=== PATIENT | male | born 1975 ===

== ENCOUNTER 2018-05-29 09:33 | Emergency (ER) | payer OTHER ==
[2018-05-29] MEDS ORDERED: Sodium Chloride 0.9% 1,000 ML IV ONE (10:36)
--- NOTE | 2018-05-29 10:52 | C.PDOC ---
History Of Present Illness 43-year-old male presents to the ED complaining of right-sided abdominal pain, worsening over the past 4 weeks. Patient was seen at an ED in [place] for the same complaint 3 weeks ago, and reports having an x-ray that was negative. No blood work or urine was done. Patient complains pain is now a constant stabbing, and is exacerbated after food. He has been taking 800mg ibuprofen every 4 hours with temporary relief of pain. Otherwise patient denies any fevers, chills, dysuria, hematuria, nausea, vomiting, diarrhea, or constipation. Patient states the pain is localized mostly to the RUQ, however occasionally he feels pain in the mid back shooting into the RUQ. Prior surgical history includes appendectomy. Time Seen by Provider: 05/29/18 10:30 Chief Complaint (Nursing): Male Genitourinary History Per: Patient History/Exam Limitations: no limitations Onset/Duration Of Symptoms: Days Current Symptoms Are (Timing): Worse Quality Of Discomfort: Sharp, Stabbing Alleviating Factors: OTC Meds (ibuprofen) Past Medical History Reviewed: Historical Data, Nursing Documentation, Vital Signs Vital Signs: Last Vital Signs Temp 98.3 F 05/29/18 10:05 Pulse 64 05/29/18 10:05 Resp 18 05/29/18 10:05 BP 158/95 H 05/29/18 10:05 Pulse Ox 98 05/29/18 10:05 - Medical History PMH: No Chronic Diseases Surgical History: Appendectomy Family History: States: No Known Family Hx - Social History Hx Alcohol Use: No Hx Substance Use: No - Immunization History Hx Tetanus Toxoid Vaccination: No Hx Influenza Vaccination: No Hx Pneumococcal Vaccination: No Review Of Systems Constitutional: Negative for: Fever, Chills Cardiovascular: Negative for: Chest Pain Respiratory: Negative for: Shortness of Breath Gastrointestinal: Positive for: Abdominal Pain (right upper quadrant). Negative for: Nausea, Vomiting, Diarrhea Genitourinary: Negative for: Dysuria, Hematuria Musculoskeletal: Negative for: Back Pain, Other (flank pain) Neurological: Negative for: Weakness, Numbness Physical Exam - Physical Exam Appears: Non-toxic, No Acute Distress Skin: Warm, Dry Head: Atraumatic, Normacephalic Eye(s): bilateral: Normal Inspection, EOMI Oral Mucosa: Moist Neck: Normal ROM Chest: Symmetrical Cardiovascular: Rhythm Regular, No Murmur Respiratory: Normal Breath Sounds, No Rales, No Rhonchi, No Wheezing Gastrointestinal/Abdominal: Bowel Sounds, Soft, Tenderness (to the right upper quadrant, negative Fletcher's sign), No Distention, No Guarding, No Rebound, No Hernia, No Ascites Back: No CVA Tenderness, No Vertebral Tenderness Extremity: Bilateral: Atraumatic, Normal Color And Temperature, Normal ROM Neurological/Psych: Oriented x3, Normal Speech Gait: Steady ED Course And Treatment - Laboratory Results Result Diagrams: 05/29/18 11:14 05/29/18 11:14 O2 Sat by Pulse Oximetry: 98 (RA) Pulse Ox Interpretation: Normal - CT Scan/US Abdominal US Other Rad Studies (CT/US): Read By Radiologist, Radiology Report Reviewed CT/US Interpretation: Accession No. : [id number]. Patient Name / ID : SARI VERDUGO / [id number]. Exam Date : 05/29/2018 11:59:40 ( Approved ). Study Comment : Sex / Age : M / [id number]. Creator : Tasneem Waddell. Dictator : Belkys Jacobs MD. Security Incident Response Specialist : Inspection Machine Tender : Belkys Jacobs MD. Approver2 : Report Date : 05/29/2018 12:15:02. My Comment : . HISTORY: RUQ abd pain. COMPARISON: None available. TECHNIQUE: Sonographic evaluation of the abdomen. FINDINGS: LIVER: Measures 18.9 cm in sagittal dimension. Echogenic liver may be seen in setting of hepatic parenchymal disease or fatty infiltration. No focal hepatic mass identified. The main portal vein appears patent with normal directional flow. No intrahepatic bile duct dilatation. GALLBLADDER: No gallstones. No gallbladder wall thickening. Negative sonographic Fletcher's sign as assessed by the stock layer. COMMON BILE DUCT: Measures 3 mm. PANCREAS: Not well visualized. RIGHT KIDNEY: Measures 12.9 x 5.5 x 6.3 cm. No obstructing calculus or hydronephrosis identified. LEFT KIDNEY: Measures 12.8 x 7.3 x 6.2 cm. No obstructing calculus or hydronephrosis identified. SPLEEN: Measures approximately 11.7 cm. AORTA: Limited views appear unremarkable. IVC: Limited views appear unremarkable. OTHER FINDINGS: None. IMPRESSION: Echogenic liver may be seen in setting of hepatic parenchymal disease or fatty infiltration. Borderline hepatomegaly. Medical Decision Making Medical Decision Making: Impression: 43-year-old with right upper quadrant pain Differential Diagnosis: gall bladder disease, rule out cholecystitis, renal colic Plan: --CMP, CBC, Lipase --Urinalysis --30 mg IV Toradol --NS IV fluids infusing --Abdominal US [RUQ] Progress/Updates: Labs reviewed, revealing blood glucose is 278. CBC is unremarkable. UA shows 3+ glucose and trace ketones. Ultrasound reviewed, and shows no signs of gallstones; fatty liver. All results discussed in detail with patient, and provided copy to patient. Explain to patient his glucose was elevated and will be prescribed Metformin for DM. Advise on diet and to follow up with PMD. On reevaluation, patient is resting comfortably and remains afebrile, AAOx3, in no acute distress. Disposition Counseled Patient/Family Regarding: Studies Performed, Diagnosis, Need For Followup, Rx Given - Disposition Referrals: [facility] [Outside] [facility] [employer] [facility] [Outside] Disposition: HOME/ ROUTINE Disposition Time: 12:58 Condition: STABLE Additional Instructions: Please follow up with your primary doctor or clinic Prescriptions: metFORMIN [glucOPHAGE] 500 mg PO BID #30 tab Instructions: Hyperglycemia, Adult (DC) Forms: Register My [employer] ([place]) - POA Present On Arrival: Poor Glycemic Control - Clinical Impression Clinical Impression: Hyperglycemia, Right sided abdominal pain, Fatty liver - PA / COMPUTER SYSTEMS INTEGRATOR / Resident Statement MD/DO has reviewed & agrees with the documentation as recorded. - Scribe Statement The provider has reviewed the documentation as recorded by the Mahiibnancy Gonzalez All medical record entries made by the Scribe were at my direction and personally dictated by me. I have reviewed the chart and agree that the record accurately reflects my personal performance of the history, physical exam, medical decision making, and the department course for this patient. I have also personally directed, reviewed, and agree with the discharge instructions and disposition.
[2018-05-29] MEDS ORDERED: Sodium Chloride 0.9% 250 ML IV ONE (11:15)
[2018-05-29 11:25] LABS: BASO % 0.5 % (0.0-2.0); EOS # 0.1 K/uL (0.0-0.7); EOS % 0.8 % (0.0-4.0); HEMOGLOBIN 14.9 g/dL (12.0-18.0); LYMPH % 26.6 % (20.0-40.0); MEAN CELL VOLUME 91.5 fL (80.0-94.0); MEAN CORPUSCULAR HEMOGLOBIN 31.7 pg (27.0-31.0); MEAN CORPUSCULAR HGB CONC 34.6 g/dL (33.0-37.0); MEAN PLATELET VOLUME 9.5 fL (7.2-11.7); MONO # 0.5 K/uL (0.0-0.8); MONO % 6.5 % (0.0-10.0); NEUT # 4.8 K/uL (1.8-7.0); NEUT % 65.6 % (50.0-75.0); RBC 4.7 Mil/uL (4.40-5.90); RED CELL DISTRIBUTION WIDTH 13.9 % (11.5-14.5); WHITE BLOOD COUNT 7.3 K/uL (4.8-10.8)
[2018-05-29 11:32] LABS: ALB/GLOB RATIO 1.5 (1.0-2.1); ALBUMIN 4.1 g/dL (3.5-5.0); ALT/SGPT 27 U/L (21-72); AMYLASE 43 U/L (30-110); AST/SGOT 22 U/L (17-59); BLOOD UREA NITROGEN 17 mg/dL (9-20); CALCIUM 8.5 mg/dl (8.6-10.4); GFR NON-AFRICAN AMERICAN > 60; LIPASE 37 U/L (23-300)
[2018-05-29 11:42] LABS: URINE BILIRUBIN NEGATIVE (NEGATIVE); URINE BLOOD NEGATIVE (NEGATIVE); URINE CLARITY Clear (Clear); URINE COLOR Yellow (YELLOW); URINE GLUCOSE (UA) 3+ mg/dL (Normal); URINE LEUKOCYTE ESTERASE NEG Leu/uL (Negative); URINE PROTEIN NEGATIVE (NEGATIVE); URINE UROBILINOGEN NORMAL mg/dL (0.2-1.0)
--- NOTE | 2018-05-29 12:29 | US ---
HISTORY: RUQ abd pain COMPARISON: None available. TECHNIQUE: Sonographic evaluation of the abdomen. FINDINGS: LIVER: Measures 18.9 cm in sagittal dimension. Echogenic liver may be seen in setting of hepatic parenchymal disease or fatty infiltration. No focal hepatic mass identified. The main portal vein appears patent with normal directional flow. No intrahepatic bile duct dilatation. GALLBLADDER: No gallstones. No gallbladder wall thickening. Negative sonographic Fletcher's sign as assessed by the football scout. COMMON BILE DUCT: Measures 3 mm. PANCREAS: Not well visualized. RIGHT KIDNEY: Measures 12.9 x 5.5 x 6.3 cm. No obstructing calculus or hydronephrosis identified. LEFT KIDNEY: Measures 12.8 x 7.3 x 6.2 cm. No obstructing calculus or hydronephrosis identified. SPLEEN: Measures approximately 11.7 cm. AORTA: Limited views appear unremarkable. IVC: Limited views appear unremarkable. OTHER FINDINGS: None. IMPRESSION: Echogenic liver may be seen in setting of hepatic parenchymal disease or fatty infiltration. Borderline hepatomegaly.
[2018-05-29 13:09] VITALS: BP 131/89; PULSE 62; RESP 16; TEMP 98
[2018-05-29 15:28] VITALS: O2SAT 98
== END 2018-05-29 13:06 | disposition home or self-care (01) ==
LOC: C.ER 09:33
DX: K76.0 Fatty (change of) liver, not elsewhere classified (principal); E11.65 Type 2 diabetes mellitus with hyperglycemia; R10.11 Right upper quadrant pain
CPT/HCPCS: 76700; 80053; 81001; 82150; 83690; 85025; 96361; 96374; 99284; J1885; J7030